=== PATIENT | female | born 1955 | race Caucasian/White ===

== ENCOUNTER 2019-12-12 12:36 | Emergency (ER) | payer OTHER, MEDICARE, SELFPAY ==
--- NOTE | ~2019-12-12 | CT_ITS ---
EXAMINATION: CT abdomen pelvis w con EXAM DATE: 12/12/2019 16:28 INDICATION: Right flank, abdominal pain. Nausea vomiting. History gastric bypass. TECHNIQUE: Spiral CT of the abdomen and pelvis was performed following intravenous injection of 100 m L Omnipaque 350. Axial, coronal and sagittal images were reviewed. The dose-length product (DLP) fo r this examination was 787.59 mGy-cm. The exposure was tailored according to patient size (auto mA e xposure control), and iterative reconstruction (ASIR) was used as additional dose reduction technique . Comparison is made to prior examination from 11/17/12. FINDINGS: The liver, spleen, adrenal glands and pancreas are unremarkable. There are cholecystectomy clips. Portal and splenic veins are patent. Kidneys enhance symmetrically. There is no hydronephr osis. The uterus is not identified and has likely been surgically resected. The bladder is unremar kable. There is no retroperitoneal or pelvic lymphadenopathy. There is mild scattered arterioscler otic disease. The appendix is not positively visualized, probably been resected. There is no pericecal inflammator y change to suggest appendicitis. There are surgical changes from intact gastric bypass surgery. Th ere is expected amount of colonic stool. No free intraperitoneal gas. The heart is normal in size . There are no pericardial or pleural effusions. The lung bases are unremarkable. There is a right ischial sclerotic focus measuring 1.0 cm, unchanged compared to prior study, bone island. Lower lumb ar surgical changes. IMPRESSION: 1. No acute intra-abdominal findings. Reviewed, dictated and finalized at location A. CRIPTIONIST
[2019-12-12 14:45] VITALS: BP 151/75; PULSE 88; RESP 18; TEMP 36.8; O2SAT 100
[2019-12-12 15:04] LABS: Basophils Absolute Auto 0.1 K/mm3 (0.0-0.1); Basophils Percent Auto 0.8 % (0.2-1.2); Eosinophils Absolute Auto 0.2 K/mm3 (0-0.3); Eosinophils Percent Auto 1.4 % (0-4.4); Hematocrit 36.1 % (37.0-47.0); Hemoglobin 11.4 g/dL (12.0-15.0); Immature Granulocyte Absolute 0.03 K/mm3 (0.00-0.031); Immature Granulocyte Percent A 0.3 % (0-0.5); Lymphocytes Absolute Auto 2.62 K/mm3 (0.9-3.2); Lymphocytes Percent Auto 25.3 % (18.3-44.2); Mean Corpuscular HGB Conc 31.6 g/dl (32-36); Mean Corpuscular Hemoglobin 25.3 pg (26-34); Mean Corpuscular Volume 80.2 fl (80-100); Mean Platelet Volume 8.7 fl (7.4-10.4); Monocytes Absolute Auto 0.5 K/mm3 (0.1-0.6); Monocytes Percent Auto 5.1 % (2.6-8.5); Neutrophils Percent Auto 67.1 % (45.5-73.1); Platelet Count Result 417 k/mm3 (150-375); Red Cell Distribution Width 17.5 % (11.5-14.5); White Blood Count 10.4 K/mm3 (4.5-10.0)
[2019-12-12 15:08] LABS: Alanine Aminotransferase 31 U/L (4-35); Albumin Level 4.3 g/dL (3.5-5.1); Alkaline Phosphatase 99 U/L (38-126); Aspartate Amino Transferase 39 U/L (14-36); Bilirubin,Total 0.4 mg/dL (0.2-1.3); Blood Urea Nitrogen 10 mg/dL (7-17); Calcium 9.1 mg/dL (8.4-10.2); Carbon Dioxide 29 mmol/L (22-30); Chloride 99 mmol/L (98-107); Estimated CRCL calculation 106 ml/min; Estimated Glomerular Filt Rate > 60; Glucose 91 mg/dL (65-105); Lipase 103 U/L (23-300); Potassium 4.1 mmol/L (3.4-5.0); Sodium 138 mmol/L (137-145)
[2019-12-12 15:10] LABS: Add Urine Microscopic? NO; Appearance Urine Clear (Clear); Bilirubin Urine Negative (Negative); Blood Urine Negative (Negative); Color Urine Colorless (Yellow); Glucose Urine UA Negative (Negative); Ketones Urine Negative (Negative); Leukocyte Esterase Ur Negative LEU/UL (Negative); Nitrate Urine Negative (Negative); Protein Urine Negative (Negative); Specific Grav Ur 1.005 (1.001-1.035); Urobilinogen Urine Negative mg/dL (<2.0)
--- NOTE | 2019-12-12 16:02 | ED.ABDPAIN ---
HPI - Abdominal Pain General Chief Complaint: Abdominal Pain Stated Complaint: side pain/weak Time Seen by Provider: 12/12/19 16:01 Source: patient Mode of arrival: ambulatory Limitations: no limitations History of Present Illness HPI narrative: Pt is a 64 y/o female who presents to the ED with c/o a dull, pressure, and aching pain to her rt flank that radiates to her mid rt ABD. Her pain started on Tuesday (3 days ago) and worsened this morning. She states that her pain is constant but the pain intensity changes. She notes that her pain feels similar to when she had appendicitis but in a different location. This morning she drank coffee and was feeling fine, after she drank some water her pain worsened and she decided to get it checked out. She has a H/O an ulcer when she was in her 20's. Pt has been eating saltines which eases some of her pain. Pt reports nausea and one episode of diarrhea, but she denies vomiting, dysuria, or hematuria. She has a PSHx of appendectomy, cholecystectomy, and gastric bypass. MD elicited complaint: abdominal pain and flank pain Onset (ago): day(s) (3) Pain Consistency: constant Location: R flank Quality: aching, dull and other (pressure) Radiation: other (rt mid quadrant) Exacerbating factors: other (drinking water) Relieving factors: eating (saltine) Associated symptoms: nausea and diarrhea Related Data Allergies Allergy/AdvReac Type Severity Reaction Status Date / Time tetracycline Allergy Intermediate HIVES Unverified 09/16/13 21:31 morphine Allergy Verified 09/16/13 21:31 Review of Systems Review of Systems: All systems reviewed & are unremarkable except as noted in HPI and below Gastrointestinal: Gastrointestinal: Reports abdominal pain, Reports diarrhea, Reports nausea and Denies vomiting Genitourinary: Genitourinary: Denies hematuria, Denies dysuria and Reports flank pain (rt) [facility] Past Medical History Medical History (Updated 12/12/19 @ 17:46 by Zulay Easton MD) Hypothyroid Ulcer Surgical History Surgical History (Updated 12/12/19 @ 16:30 by James Hankins) H/O section H/O: hysterectomy History of back surgery History of total right knee replacement Hx of appendectomy Hx of cholecystectomy Hx of gastric bypass Family History Family History (Updated 05/01/19 @ 15:19 by DOCTOR UNKNOWN) Mother Patient's mother is Family history of thyroid disease Diabetes mellitus Cerebrovascular accident Father Patient's father is Diabetes mellitus Cerebrovascular accident Grandparent Family history of thyroid disease Diabetes mellitus Family history of liver disease Cerebrovascular accident Sibling Family history of thyroid disease Other Family history of arthritis Family history of rheumatoid arthritis Social History Social History (Updated 12/12/19 @ 16:31 by James Hankins) Smoking packs per day: 0.5 Smoking cigarettes per day: 10.0 Smoking status: Current every day smoker Second hand tobacco smoke exposure: Yes Smoking end date: 10/10/11 Alcohol intake: current Comments Her PCP is Dr. Brooks. Exam Const: General: cooperative, no acute distress and alert Nutritional Appearance: well nourished Orientation/consciousness: patient oriented x3 Limitations: no limitations HENMT: Mouth: Yes lip normal and Yes moist mucous membranes Throat: uvula midline Resp: Effort & Inspection: normal respiratory effort Auscultation: clear to auscultation bilaterally Cardio: Rate: regular rate Rhythm: regular rhythm Peripheral pulses: dorsalis pedis present bilateral GI: GI Palp: Yes Soft to palpation and No Tenderness to palpation present (GI) Auscultation: normal bowel sounds Skin: General skin exam: normal color Rashes: no rashes Neuro: General: patient oriented x3 Cognition (Neuro): normal cognition Speech: normal speech Extrem: General: normal to inspection, full ROM and no clubbing, cyanosis or e
[2019-12-12 16:08] VITALS: BP 152/87; PULSE 95; RESP 20; O2SAT 97
[2019-12-12 18:00] VITALS: BP 117/68; PULSE 64; RESP 16; O2SAT 99
== END 2019-12-12 18:00 | disposition home or self-care (01) ==
PROVIDERS: Emergency Medicine; Emergency Provider Emergency Medicine; PCP Family Medicine
DX: R10.11 Right upper quadrant pain (principal); F17.210 Nicotine dependence, cigarettes, uncomplicated; E03.9 Hypothyroidism, unspecified
CPT/HCPCS: 36415; 74177; 80053; 81003; 83690; 85025; 99284; Q9967

== ENCOUNTER 2020-03-19 09:09 | Outpatient (CLI) | payer OTHER, MEDICARE, SELFPAY ==
--- NOTE | ~2020-03-19 | XR_ITS ---
EXAMINATION: XR lumbar spine 2-3V DATE: 03/19/2020 09:37 INDICATION: Low back pain. TECHNIQUE: 3 views of lumbar spine were obtained. COMPARISON: CT abdomen and pelvis 12/12/2019, lumbar spine MRI 04/18/2017 FINDINGS: There is 8 mm anterolisthesis of L5 on S1. There are changes of anterior and posterior fusi on procedures from L4 to S1 with interbody bone graft, left-sided pedicle screws, and S1 screw. Verte bral body heights are normal. There is moderately decreased disc height at L3-L4 with endplate remode ling. There is mild facet joint osteoarthritis at L3-L4 and mild facet joint osteoarthritis of the mariah mbar spine. Surgical clips in the right upper quadrant are likely from cholecystectomy. IMPRESSION: 1. Moderate lumbar spondylosis. 2. Anterior and posterior fusion procedures from L4 to S1. Reviewed, dictated and finalized at location A.
[2020-03-19 10:11] LABS: Basophils Absolute Auto 0.1 K/mm3 (0.0-0.1); Basophils Percent Auto 0.9 % (0.2-1.2); Eosinophils Absolute Auto 0.2 K/mm3 (0-0.3); Eosinophils Percent Auto 2.6 % (0-4.4); Hematocrit 36.4 % (37.0-47.0); Hemoglobin 11.7 g/dL (12.0-15.0); Immature Granulocyte Absolute 0.03 K/mm3 (0.00-0.031); Immature Granulocyte Percent A 0.4 % (0-0.5); Lymphocytes Absolute Auto 2.48 K/mm3 (0.9-3.2); Lymphocytes Percent Auto 32.6 % (18.3-44.2); Mean Corpuscular HGB Conc 32.1 g/dl (32-36); Mean Corpuscular Hemoglobin 25.9 pg (26-34); Mean Corpuscular Volume 80.7 fl (80-100); Monocytes Absolute Auto 0.6 K/mm3 (0.1-0.6); Neutrophils Absolute Auto 4.2 K/mm3 (1.3-6.7); Neutrophils Percent Auto 55.5 % (45.5-73.1); Platelet Count Result 399 k/mm3 (150-375); Red Blood Count 4.51 M/mm3 (4.2-5.4); Red Cell Distribution Width 16.3 % (11.5-14.5); White Blood Count 7.6 K/mm3 (4.5-10.0)
[2020-03-19 10:24] LABS: Alanine Aminotransferase 28 U/L (4-35); Albumin Level 4.2 g/dL (3.5-5.1); Alkaline Phosphatase 98 U/L (38-126); Aspartate Amino Transferase 38 U/L (14-36); Bilirubin,Total 0.2 mg/dL (0.2-1.3); Blood Urea Nitrogen 11 mg/dL (7-17); Calcium 9.2 mg/dL (8.4-10.2); Carbon Dioxide 31 mmol/L (22-30); Chloride 99 mmol/L (98-107); Cholesterol 227 mg/dL (0-200); Estimated Glomerular Filt Rate > 60; Glucose 91 mg/dL (65-105); HDL Direct 60 mg/dL; Sodium 134 mmol/L (137-145); Triglycerides 97 mg/dL (<150)
[2020-03-19 10:36] LABS: LDL Cholesterol Direct 144 mg/dL
[2020-03-19 10:56] LABS: Thyroid Stimulating Hormone 0.951 uIU/mL (0.465-4.680)
[2020-03-19 11:17] LABS: Iron 45 ug/dL (37-170); Percent Iron Saturation 10 % (20-50)
[2020-03-19 11:18] LABS: Free T4 Free Thyroxine 0.97 ng/mL (0.78-2.19); Vitamin D 25 Hydroxy 31.5 ng/mL
[2020-03-19 11:43] LABS: Folic Acid > 20.0 ng/mL (2.76->20)
[2020-03-24 07:26] LABS: Triiodothyronine T3 Free 3.1 pg/mL (2.3-4.2)
== END 2020-03-19 09:10 | disposition home or self-care (01) ==
LOC: ANHLAB 09:17
PROVIDERS: PCP Family Medicine; Visit Provider Family Medicine
DX: E05.90 Thyrotoxicosis, unspecified without thyrotoxic crisis or storm (principal); E03.9 Hypothyroidism, unspecified; Z98.84 Bariatric surgery status; Z13.1 Encounter for screening for diabetes mellitus; Z13.220 Encounter for screening for lipoid disorders; Z13.21 Encounter for screening for nutritional disorder; M54.9 Dorsalgia, unspecified
CPT/HCPCS: 36415; 72100; 80053; 80061; 82306; 82607; 82746; 83540; 83550; 84439; 84443; 84481; 85025

== ENCOUNTER 2020-04-28 10:23 | Outpatient (CLI) | payer OTHER, MEDICARE, SELFPAY ==
--- NOTE | ~2020-04-28 | CT_ITS ---
EXAMINATION: CT lumbar spine wo con EXAM DATE: 04/28/2020 10:49 INDICATION: Low back pain, history of surgery 10 years ago. TECHNIQUE: Spiral CT of the lumbar spine was performed without contrast. Axial, coronal and sagittal images were reviewed. The dose-length product (DLP) for this examination was 939.03 mGy-cm. The e xposure was tailored according to patient size (auto mA exposure control), and iterative reconstructi on (ASIR) was used as additional dose reduction technique. There is no prior study for comparison. C orrelation was made with lumbar spine MRI exam 04/18/2017. FINDINGS: There are left-sided pedicular screws and interbody fusion L4-S1. The L5-S1 level is fused in anterolisthesis position, evidence of old chronic bilateral L5 spondylolysis. Upper lumbar vertebr al bodies are aligned. There is mild to moderate disc disease at L3-4 with vacuum disc phenomenon. Pa raspinal soft tissue is unremarkable. Level by level evaluation: T12-L1: There is a mild diffuse disc bulge. Facet arthropathy: Minimal. Neural foraminal stenosis: No stenosis. Central canal stenosis: No stenosis. L1-L2: There is a mild diffuse disc bulge. Facet arthropathy: Mild. Neural foraminal stenosis: No stenosis. Central canal stenosis: No stenosis. L2-L3: There is a mild diffuse disc bulge. Facet arthropathy: Mild to moderate. Neural foraminal stenosis: Minimal left. Central canal stenosis: Mild. L3-L4: There is a mild to moderate diffuse disc bulge. Facet arthropathy: Moderate. Neural foraminal stenosis: Mild to moderate bilateral. Central canal stenosis: Mild to moderate. L4-L5: This level is fused. Facet arthropathy: Mild to moderate. Neural foraminal stenosis: Mild right. Central canal stenosis: No stenosis. L5-S1: This level is fused. Facet arthropathy: Mild to moderate. Neural foraminal stenosis: Mild to moderate bilateral. Central canal stenosis: No stenosis. IMPRESSION: 1. Intact L4-S1 fusion. 2. Mild to moderate spondylosis as detailed above. Reviewed, dictated and finalized at location A.
== END 2020-04-28 10:24 | disposition home or self-care (01) ==
PROVIDERS: PCP Family Medicine; Visit Provider Family Medicine
DX: M47.896 Other spondylosis, lumbar region (principal); Z98.1 Arthrodesis status
CPT/HCPCS: 72131

== ENCOUNTER 2020-05-14 10:12 | Outpatient (CLI) | payer OTHER, MEDICARE, SELFPAY ==
[2020-05-14 10:55] LABS: Basophils Absolute Auto 0.1 K/mm3 (0.0-0.1); Basophils Percent Auto 1.2 % (0.2-1.2); Eosinophils Absolute Auto 0.2 K/mm3 (0-0.3); Eosinophils Percent Auto 2.9 % (0-4.4); Hematocrit 36.8 % (37.0-47.0); Hemoglobin 11.8 g/dL (12.0-15.0); Immature Granulocyte Absolute 0.02 K/mm3 (0.00-0.031); Immature Granulocyte Percent A 0.3 % (0-0.5); Lymphocytes Absolute Auto 2.09 K/mm3 (0.9-3.2); Lymphocytes Percent Auto 30.1 % (18.3-44.2); Mean Corpuscular HGB Conc 32.1 g/dl (32-36); Mean Corpuscular Hemoglobin 26.2 pg (26-34); Mean Corpuscular Volume 81.6 fl (80-100); Mean Platelet Volume 8.6 fl (7.4-10.4); Monocytes Absolute Auto 0.6 K/mm3 (0.1-0.6); Monocytes Percent Auto 8.5 % (2.6-8.5); Platelet Count Result 392 k/mm3 (150-375); Red Blood Count 4.51 M/mm3 (4.2-5.4); Red Cell Distribution Width 17.2 % (11.5-14.5); White Blood Count 6.9 K/mm3 (4.5-10.0)
[2020-05-14 11:20] LABS: Alanine Aminotransferase 35 U/L (4-35); Albumin Level 4.1 g/dL (3.5-5.1); Alkaline Phosphatase 86 U/L (38-126); Anion Gap 9.2 mmol/L (7-16); Aspartate Amino Transferase 38 U/L (14-36); Bilirubin,Total 0.4 mg/dL (0.2-1.3); Blood Urea Nitrogen 13 mg/dL (7-17); Calcium 9.1 mg/dL (8.4-10.2); Carbon Dioxide 30 mmol/L (22-30); Chloride 101 mmol/L (98-107); Estimated Glomerular Filt Rate > 60; Glucose 88 mg/dL (65-105); Potassium 4.2 mmol/L (3.4-5.0); Sodium 136 mmol/L (137-145)
[2020-05-14 12:13] LABS: Hepatitis B Surface Antigen Negative (Negative)
[2020-05-14 12:17] LABS: HAV RESULT Negative (Negative); Hepatitis B Core IgM Result Negative (Negative)
[2020-05-14 12:34] LABS: Hepatitis C Virus Antibody Negative (Negative)
== END 2020-05-14 10:13 | disposition home or self-care (01) ==
PROVIDERS: PCP Family Medicine; Visit Provider Family Medicine
DX: D64.9 Anemia, unspecified (principal); R79.89 Other specified abnormal findings of blood chemistry; R94.5 Abnormal results of liver function studies
CPT/HCPCS: 36415; 80053; 80074; 85025

== ENCOUNTER 2020-06-16 20:25 | Emergency (ER) | payer OTHER, MEDICARE, SELFPAY ==
--- NOTE | ~2020-06-16 | XR_ITS ---
XR chest 2V DATE: 06/16/2020 21:06 INDICATION: Chest tightness on the left. Hypertension. TECHNIQUE: AP and lateral views COMPARISON: 01/17/2009 PA and lateral chest FINDINGS: Surgical clips, right upper quadrant, consistent with cholecystectomy. Normal heart size. There is mild aortic tortuosity. No hilar or mediastinal enlargement. No pulmonary infiltrate or consolidation, pleural effusion or pulmonary vascular congestion or pneumothorax. IMPRESSION: No active cardiopulmonary disease Reviewed, dictated and finalized at location A.
--- NOTE | ~2020-06-16 | CT_ITS ---
EXAMINATION: CT brain wo con DATE: 06/16/2020 21:08 INDICATION: Dizziness, right-sided numbness, poor coordination. TECHNIQUE: Computed tomography (CT) of the head was performed without intravenous contrast. The mA wa s adjusted according to patient size. Iterative reconstruction technique was employed. Exam dose: 60 5.33 mGy-cm total exam DLP. COMPARISON: None FINDINGS: No intracranial mass lesion or hemorrhage or cerebrovascular accident. No midline shifts or mass effects. Normal ventricular size. No subdural or epidural hematoma. No fracture or bone destruction of the cranial vault. The mastoid air cells and paranasal sinuses are normally developed and aerated. IMPRESSION: No significant abnormality Reviewed, dictated and finalized at Location A. Reviewed, dictated and finalized at location A. IMPRESSION: No significant abnormality
[2020-06-16 20:30] VITALS: BP 159/107; PULSE 122; RESP 18; TEMP 36.6; O2SAT 99
[2020-06-16 20:35] VITALS: O2SAT 97
--- NOTE | 2020-06-16 20:35 | ECG_ITS ---
Measurements Intervals [place] Rate: 127 P: 52 [place]: 141 QRS: -12 QRSD: 90 T: 74 QT: 312 QTc: 455 Interpretive Statements SINUS TACHYCARDIA NONSPECIFIC ST & T-WAVE ABNORMALITY- HIGH LATERAL LEADS BASELINE ARTIFACT- II, III, V3-V4 ABNORMAL ECG Electronically Signed On 06-17-2020 6:53:54 CDT by Abdulaziz Stevens D.O.
--- NOTE | 2020-06-16 20:58 | ED.GENADULT ---
HPI - General Adult General Chief complaint: Chest Pain Stated complaint: CP with dizziness Time Seen by Provider: 06/16/20 20:32 History of Present Illness HPI narrative: Patient is a 65-year-old female who presents the ER with several complaints. She reports she arrived home from going on a walk with her dogs at approximately 1950. While she was standing in her kitchen she suddenly began to have ringing/roaring in her ears bilaterally. She then began to feel very dizzy. After the dizziness and tinnitus began she felt some shortness of breath and chest pain began breathing fast. She reports some brief shaking along with this. In route with EMS patient continues to have the dizziness and the ringing in her ears. Patient reports she also notes that she has new numbness to her right face, right arm, and right leg. She has some chronic nerve issues in her right lower extremities but her sensation seems to be worse there. She also feels like her coordination in her right lower extremity is abnormal from baseline. No previous stroke history. No history of A. fib. She is not on any blood thinners. No aggravating or alleviating factors. Related Data Home Medications Medication Instructions Recorded Confirmed thyroid (pork) [[place] Thyroid] 06/16/20 Allergies Allergy/AdvReac Type Severity Reaction Status Date / Time morphine Allergy Severe Itching Verified 06/16/20 20:35 tetracycline Allergy Intermediate HIVES Verified 06/16/20 20:35 Review of Systems Review of Systems: All systems reviewed & are unremarkable except as noted in HPI and below Eyes: Eyes: Denies change in vision and Denies photophobia ENT: Comments: +tinnitus Cardiovascular: Cardiovascular: Reports chest pain and Denies radiating jaw, neck or arm pain Respiratory: Respiratory: Denies cough, Reports dyspnea and Denies wheezing Musculoskeletal: Musculoskeletal: Denies arthralgias, Denies joint swelling and Denies muscle cramps Neurologic: Reports dizziness, Denies headache(s), Denies focal weakness and Reports numbness Comments: +incoordination PMFSH Social History Social History Smoking packs per day: 0.5 Smoking cigarettes per day: 10.0 Smoking status: Current every day smoker Second hand tobacco smoke exposure: Yes Smoking end date: 10/10/11 Alcohol intake: current Exam Narrative: Exam Narrative: GENERAL: Well-appearing, well-nourished, and in no acute distress. HEAD: Normocephalic, atraumatic. ENT: Mucous membranes moist. TM's normal bilaterally, small amount of cerumen in left ear canal. CHEST: Clear to auscultation. No respiratory distress. HEART: Tachycardic and regular. Normal peripheral pulses. ABDOMEN: Soft, nontender, nondistended. EXTREMITIES: Normal range of motion. No edema. SKIN: Warm, dry, no rash. NEURO: Decreased sharp touch sensation to the right face, the right upper extremity, and the right lower extremity when compared to the left. Patient has no upper extremity drift or lower extremity drift but patient does have some difficulty initially lifting her leg off the bed on the right side. Patient has difficulty with [id number] testing with the right lower extremity and normal [id number] testing with the left lower extremity. Finger-nose testing intact in bilateral upper extremities. Patient is without facial motor weakness, no dysarthria, no expressive aphasia. Alert and oriented x3. PSYCH: Normal mood and affect. Course Course Emergency Course: Discussed with Dr. London at [facility]. Does not recommend TPA with low stroke scale and mainly sensory deficits. Has accepted the patient for transfer to [facility] for further evaluation and treatment. Vital Signs Vital signs: Vital Signs Temperature 97.8 F 06/16/20 20:30 Pulse Rate 122 H 06/16/20 20:30 Respiratory Rate 18 06/16/20 20:30 Blood Pressure 159/107 H 06/16/20 20:30 Pulse Oximetry 99
[2020-06-16 21:26] VITALS: BP 165/95; PULSE 100; RESP 20; O2SAT 100
[2020-06-16 21:31] LABS: Basophils Absolute Auto 0.1 K/mm3 (0.0-0.1); Basophils Percent Auto 1.2 % (0.2-1.2); Eosinophils Absolute Auto 0.2 K/mm3 (0-0.3); Eosinophils Percent Auto 2.8 % (0-4.4); Hematocrit 35.5 % (37.0-47.0); Hemoglobin 11.4 g/dL (12.0-15.0); Immature Granulocyte Absolute 0.02 K/mm3 (0.00-0.031); Immature Granulocyte Percent A 0.3 % (0-0.5); Lymphocytes Absolute Auto 2.65 K/mm3 (0.9-3.2); Lymphocytes Percent Auto 34.7 % (18.3-44.2); Mean Corpuscular HGB Conc 32.1 g/dl (32-36); Mean Corpuscular Hemoglobin 26.3 pg (26-34); Mean Corpuscular Volume 81.8 fl (80-100); Mean Platelet Volume 8.6 fl (7.4-10.4); Monocytes Absolute Auto 0.6 K/mm3 (0.1-0.6); Monocytes Percent Auto 7.9 % (2.6-8.5); Neutrophils Absolute Auto 4.1 K/mm3 (1.3-6.7); Neutrophils Percent Auto 53.1 % (45.5-73.1); Platelet Count Result 369 k/mm3 (150-375); Red Blood Count 4.34 M/mm3 (4.2-5.4); Red Cell Distribution Width 17.2 % (11.5-14.5); White Blood Count 7.6 K/mm3 (4.5-10.0)
[2020-06-16 21:41] LABS: INR 0.9; Partial Thromboplastin Time 28.8 SECONDS (22.3-36.8); Prothrombin Time 12.1 Seconds (11.1-14.7)
[2020-06-16 21:45] LABS: Anion Gap 5 mmol/L (8-16); Blood Urea Nitrogen 15 mg/dL (7-17); Carbon Dioxide 28 mmol/L (22-30); Chloride 104 mmol/L (98-107); Estimated CRCL calculation 69 ml/min; Estimated Glomerular Filt Rate > 60; Glucose 103 mg/dL (65-105); Potassium 4.2 mmol/L (3.4-5.0); Sodium 137 mmol/L (137-145)
[2020-06-16 21:51] VITALS: BP 169/91; PULSE 96; RESP 18; O2SAT 100
--- NOTE | 2020-06-16 21:51 | PC.NURSE ---
pt received 324mg aspirin by ems prior to ed arrival.
[2020-06-16 21:56] LABS: Troponin I < 0.012 ng/mL (0.000-0.034)
[2020-06-16 22:16] VITALS: BP 157/83; PULSE 92; RESP 18; O2SAT 99
--- NOTE | 2020-06-16 22:34 | PC.NURSE ---
Addendum entered by Chery Yoder 06/16/20 22:39: [facility] both were called for transportation and both declined Original Note: contacted [facility] to transfer patient to [facility] 0000
--- NOTE | 2020-06-16 23:42 | PC.NURSE ---
jean-baptiste called and informed us that a new eta has been given for 004
[2020-06-17 00:01] VITALS: BP 129/66; PULSE 96; RESP 20; O2SAT 97
[2020-06-17 00:24] LABS: Troponin I < 0.012 ng/mL (0.000-0.034)
--- NOTE | 2020-06-17 00:32 | PC.NURSE ---
jean-baptiste has arrived
[2020-06-17 00:36] VITALS: BP 127/80; PULSE 90; RESP 18; TEMP 36.6; O2SAT 97
== END 2020-06-17 01:01 | disposition short-term general hospital (02) ==
PROVIDERS: Emergency Provider Emergency Medicine; PCP Family Medicine
DX: I63.9 Cerebral infarction, unspecified (principal); R29.702 NIHSS score 2; R07.9 Chest pain, unspecified; R00.0 Tachycardia, unspecified; F17.210 Nicotine dependence, cigarettes, uncomplicated
CPT/HCPCS: 36415; 70450; 71046; 80048; 82948; 84484; 85025; 85610; 85730; 93005; 99285

== ENCOUNTER 2021-03-02 11:06 | Emergency (ER) | payer OTHER, MEDICARE, SELFPAY ==
--- NOTE | ~2021-03-02 | XR_ITS ---
EXAMINATION: XR tibia fibula RT 2V INDICATION: Right leg pain TECHNIQUE: Two views of the right tibia and fibula are obtained. COMPARISON: None available FINDINGS: There is lateral soft tissue swelling adjacent to the mid fibula. No underlying osseous abn ormality is identified. There are no radiopaque foreign bodies. Bone alignment is normal. There are c hanges of total knee arthroplasty. IMPRESSION: 1. Soft tissue swelling of the lateral leg without acute osseous abnormality or radiopaque foreign carlos eduardo dy. Reviewed, dictated and finalized at location A. IMPRESSION: 1. Soft tissue swelling of the lateral leg without acute osseous abnormality or radiopaque foreign body.
[2021-03-02 11:09] VITALS: BP 138/90; PULSE 94; RESP 14; TEMP 36.6; O2SAT 100
[2021-03-02 11:16] VITALS: BP 143/75; PULSE 85; RESP 16; O2SAT 100
--- NOTE | 2021-03-02 12:03 | ED.LOWEXIN ---
HPI - Extremity Injury (Lower) General Chief Complaint: Extremity Injury, Lower Stated Complaint: right leg injury Time Seen by Provider: 03/02/21 11:33 Source: patient Mode of arrival: ambulatory Limitations: no limitations History of Present Illness HPI Narrative: Patient is a 65 year old female who presents with swelling and tenderness to right lateral leg. She reports that a piece of plywood fell on side of leg approximately 3 days ago. She reports intial abrasion and hematoma, reports increased redness and edema. She is not on anticoagulants. She reports increased swelling and bruising to foot. She reports pain with ambulation. She denies other complaints and is unsure when she had last tetanus vaccine. MD complaint: leg injury Related Data Home Medications Medication Instructions Recorded Confirmed aspirin 325 mg tablet 325 mg PO DAILY 06/30/20 12/02/20 atorvastatin 40 mg tablet 40 mg PO DAILY 06/30/20 12/02/20 hydrochlorothiazide 12.5 mg tablet 12.5 mg PO DAILY PRN 12/02/20 12/02/20 Allergies Allergy/AdvReac Type Severity Reaction Status Date / Time morphine Allergy Severe Itching Verified 12/02/20 10:37 tetracycline Allergy Intermediate HIVES Verified 12/02/20 10:37 hydrocodone Allergy Itching Verified 03/02/21 11:24 oxycodone Allergy Irritable Verified 03/02/21 11:24 Review of Systems Review of Systems: Narrative: CONSTITUTIONAL: Denies fever, chills, or sweats. EYES: Denies visual changes, redness, or discharge. ENT: Denies rhinorrhea, congestion, sore throat, or otalgia. CARDIOVASCULAR: Denies chest pain, palpitations, or edema. RESPIRATORY: Denies cough or dyspnea. GASTROINTESTINAL: Denies abdominal pain, nausea, vomiting, or diarrhea. GENITOURINARY: Denies dysuria or hematuria. SKIN: Denies rash or itching. MUSCULOSKELETAL: Right leg pain, swelling, abrasion NEUROLOGIC: Denies headache, numbness, dizziness, or weakness. PSYCHIATRIC: Denies anxiety or depression. [facility] Past Medical History Medical History (Updated 03/02/21 @ 13:29 by MYRA Serrano) Hypothyroid Ulcer Surgical History Surgical History H/O section H/O: hysterectomy History of back surgery History of total right knee replacement Hx of appendectomy Hx of cholecystectomy Hx of gastric bypass Family History Family History Mother Patient's mother is Family history of thyroid disease Diabetes mellitus Cerebrovascular accident Father Patient's father is Diabetes mellitus Cerebrovascular accident Grandparent Family history of thyroid disease Diabetes mellitus Family history of liver disease Cerebrovascular accident Sibling Family history of thyroid disease Other Family history of arthritis Family history of rheumatoid arthritis Social History Social History Smoking packs per day: 0.5 Smoking cigarettes per day: 10.0 Smoking status: Current every day smoker Second hand tobacco smoke exposure: Yes Smoking end date: 10/10/11 Alcohol intake: current Drinks per week: 1 Substance use: never Substance use type: does not use Gender identity (if verbalized by the patient): Female Spiritual care concerns: No Agree to blood products: Yes Comments At the time of signature, I have reviewed and agree with nursing past medical, surgical, social, and family history unless otherwise noted. Please see nursing chart for further information. There is no relevant family history pertinent to the presenting complaint. Exam Narrative: Exam Narrative: GENERAL: Well-appearing, well-nourished, and in no acute distress. HEAD: Normocephalic, atraumatic. EYES: EOMI. No redness or drainage. Conjunctiva are normal. ENT: Mucous membranes pink and moist. HEART: Regular rate and rhythm. No murmur appreciated. Analy
[2021-03-02] MEDS: TETANUS,DIPHTHERIA,AC PERTUSSIS ADULT (0.5 ML) BOOSTRIX IM (13:27)
== END 2021-03-02 13:41 | disposition home or self-care (01) ==
PROVIDERS: Emergency Provider Nurse Practitioner; PCP Family Medicine
DX: L03.115 Cellulitis of right lower limb (principal); S90.31XA Contusion of right foot, initial encounter; S90.01XA Contusion of right ankle, initial encounter; S80.811A Abrasion, right lower leg, initial encounter; Z23 Encounter for immunization; E03.9 Hypothyroidism, unspecified; Z96.651 Presence of right artificial knee joint; Z98.84 Bariatric surgery status; F17.210 Nicotine dependence, cigarettes, uncomplicated; W20.8XXA Other cause of strike by thrown, projected or falling object, initial encounter
CPT/HCPCS: 73590; 90471; 90715; 99283

== ENCOUNTER 2021-04-28 13:34 | Outpatient (CLI) | payer OTHER, MEDICARE, SELFPAY ==
--- NOTE | ~2021-04-28 | US_ITS ---
EXAMINATION: US venous doppler LE RT DATE: 04/28/2021 13:11 INDICATION: Right lower limb pain TECHNIQUE: Guzman scale images without and with compression and Doppler images of the right lower extre mity veins were obtained. COMPARISON: None FINDINGS: The right common femoral vein, profunda femoral vein, femoral vein, popliteal vein, peronea l trunk, posterior tibial veins, and greater saphenous vein are patent. There is an approximately 3.8 x 6.3 x 1.0 cm complex, mixed echogenicity area in the subcutaneous tissues of the right lateral mauricio f in the area of clinical concern without internal vascularity. IMPRESSION: 1. Patent right lower extremity veins. No evidence of deep venous thrombosis. 2. Likely soft tissue hematoma of the right calf at the area of clinical concern. Reviewed, dictated and finalized at location B. IMPRESSION: 1. Patent right lower extremity veins. No evidence of deep venous thrombosis. 2. Likely soft tissue hematoma of the right calf at the area of clinical concer n.
[2021-04-28 13:53] LABS: Basophils Absolute Auto 0.1 K/mm3 (0.0-0.1); Basophils Percent Auto 0.7 % (0.2-1.2); Eosinophils Absolute Auto 0.2 K/mm3 (0-0.3); Eosinophils Percent Auto 1.9 % (0-4.4); Hematocrit 33.4 % (37.0-47.0); Immature Granulocyte Absolute 0.03 K/mm3 (0.00-0.031); Immature Granulocyte Percent A 0.3 % (0-0.5); Lymphocytes Absolute Auto 2.52 K/mm3 (0.9-3.2); Lymphocytes Percent Auto 26.5 % (18.3-44.2); Mean Corpuscular HGB Conc 29.9 g/dl (32-36); Mean Corpuscular Hemoglobin 22.7 pg (26-34); Mean Corpuscular Volume 75.9 fl (80-100); Mean Platelet Volume 8.5 fl (7.4-10.4); Monocytes Absolute Auto 0.7 K/mm3 (0.1-0.6); Monocytes Percent Auto 7.6 % (2.6-8.5); Platelet Count Result 417 k/mm3 (150-375); Red Cell Distribution Width 18.9 % (11.5-14.5); White Blood Count 9.5 K/mm3 (4.5-10.0)
[2021-04-28 14:04] LABS: Alanine Aminotransferase 25 U/L (4-35); Albumin Level 4.3 g/dL (3.5-5.1); Alkaline Phosphatase 107 U/L (38-126); Anion Gap 7 mmol/L (8-16); Aspartate Amino Transferase 39 U/L (14-36); Bilirubin,Total 0.3 mg/dL (0.2-1.3); Blood Urea Nitrogen 16 mg/dL (7-17); Calcium 9.7 mg/dL (8.4-10.2); Carbon Dioxide 31 mmol/L (22-30); Chloride 98 mmol/L (98-107); Estimated Glomerular Filt Rate > 60; Glucose 90 mg/dL (65-110); Magnesium 2.2 mg/dL (1.6-2.3); Potassium 4.5 mmol/L (3.4-5.0); Sodium 136 mmol/L (137-145)
[2021-04-28 14:21] LABS: Platelet Estimate Adequate (Adequate)
[2021-04-28 14:23] LABS: Anisocytosis 2+ (NORMAL); Ovalocytes 2+ (NORMAL); Tear Drop Cells 1+ (NORMAL)
[2021-04-28 15:40] LABS: Iron 20 ug/dL (37-170)
[2021-04-28 15:49] LABS: Percent Iron Saturation 4 % (20-50)
[2021-04-28 15:57] LABS: Vitamin D 25 Hydroxy 40.8 ng/mL
[2021-04-29 17:53] LABS: Folic Acid 18.5 ng/mL (2.76->20)
== END 2021-04-28 13:35 | disposition home or self-care (01) ==
PROVIDERS: PCP Family Medicine; Visit Provider Family Medicine
DX: M25.473 Effusion, unspecified ankle (principal); M79.669 Pain in unspecified lower leg; R25.2 Cramp and spasm; E04.1 Nontoxic single thyroid nodule; D64.9 Anemia, unspecified; E55.9 Vitamin D deficiency, unspecified
CPT/HCPCS: 36415; 80053; 82306; 82607; 82746; 83540; 83550; 83735; 84443; 85025; 93971

== ENCOUNTER 2021-06-05 10:59 | Outpatient (CLI) | payer OTHER, MEDICARE, SELFPAY ==
[2021-06-05 11:48] LABS: Basophils Absolute Auto 0.1 K/mm3 (0.0-0.1); Basophils Percent Auto 1.2 % (0.2-1.2); Eosinophils Absolute Auto 0.2 K/mm3 (0-0.3); Hematocrit 41.1 % (37.0-47.0); Hemoglobin 12.8 g/dL (12.0-15.0); Immature Granulocyte Absolute 0.03 K/mm3 (0.00-0.031); Immature Granulocyte Percent A 0.4 % (0-0.5); Lymphocytes Absolute Auto 2.05 K/mm3 (0.9-3.2); Lymphocytes Percent Auto 28.2 % (18.3-44.2); Mean Corpuscular HGB Conc 31.1 g/dl (32-36); Mean Corpuscular Hemoglobin 26.3 pg (26-34); Mean Corpuscular Volume 84.6 fl (80-100); Mean Platelet Volume 8.9 fl (7.4-10.4); Monocytes Absolute Auto 0.6 K/mm3 (0.1-0.6); Neutrophils Absolute Auto 4.3 K/mm3 (1.3-6.7); Neutrophils Percent Auto 59.2 % (45.5-73.1); Platelet Count Result 347 k/mm3 (150-375); Red Blood Count 4.86 M/mm3 (4.2-5.4); White Blood Count 7.3 K/mm3 (4.5-10.0)
[2021-06-05 12:00] LABS: Alanine Aminotransferase 33 U/L (4-35); Albumin Level 4.3 g/dL (3.5-5.1); Alkaline Phosphatase 92 U/L (38-126); Anion Gap 7 mmol/L (8-16); Aspartate Amino Transferase 40 U/L (14-36); Bilirubin,Total 0.3 mg/dL (0.2-1.3); Blood Urea Nitrogen 15 mg/dL (7-17); Calcium 9.6 mg/dL (8.4-10.2); Carbon Dioxide 30 mmol/L (22-30); Chloride 101 mmol/L (98-107); Estimated Glomerular Filt Rate > 60; Glucose 88 mg/dL (65-110); Potassium 4.8 mmol/L (3.4-5.0); Sodium 138 mmol/L (137-145)
[2021-06-05 13:13] LABS: Iron 132 ug/dL (37-170)
[2021-06-05 13:22] LABS: Percent Iron Saturation 36 % (20-50)
== END 2021-06-05 11:00 | disposition home or self-care (01) ==
PROVIDERS: PCP Family Medicine; Visit Provider Family Medicine
DX: D64.9 Anemia, unspecified (principal); R94.5 Abnormal results of liver function studies
CPT/HCPCS: 36415; 80053; 83540; 83550; 85025

== ENCOUNTER 2021-07-11 00:46 | Emergency (ER) | payer OTHER, MEDICARE, SELFPAY ==
--- NOTE | 2021-07-11 00:51 | ECG_ITS ---
Measurements Intervals [place] Rate: 114 P: 60 NE: 163 QRS: -11 QRSD: 80 T: 86 QT: 396 QTc: 546 Interpretive Statements SINUS TACHYCARDIA DELAYED PRECORDIAL R/S TRANSITION BORDERLINE ST-T WAVE ABNORMALITY- HIGH LATERAL LEADS BASELINE ARTIFACT- I, III, AVL, V4 ABNORMAL ECG Electronically Signed On 07-11-2021 8:37:44 CDT by Abdulaziz Stevens D.O.
[2021-07-11 00:56] VITALS: BP 152/99; PULSE 110; RESP 20; TEMP 36.6; O2SAT 99
[2021-07-11 01:18] LABS: Basophils Absolute Auto 0.1 K/mm3 (0.0-0.1); Basophils Percent Auto 0.6 % (0.2-1.2); Eosinophils Absolute Auto 0.3 K/mm3 (0-0.3); Eosinophils Percent Auto 2.8 % (0-4.4); Hematocrit 37.9 % (37.0-47.0); Hemoglobin 12.6 g/dL (12.0-15.0); Immature Granulocyte Absolute 0.04 K/mm3 (0.00-0.031); Immature Granulocyte Percent A 0.4 % (0-0.5); Lymphocytes Absolute Auto 5.26 K/mm3 (0.9-3.2); Lymphocytes Percent Auto 47.3 % (18.3-44.2); Mean Corpuscular HGB Conc 33.2 g/dl (32-36); Mean Corpuscular Hemoglobin 28.1 pg (26-34); Mean Corpuscular Volume 84.6 fl (80-100); Mean Platelet Volume 8.5 fl (7.4-10.4); Monocytes Absolute Auto 0.8 K/mm3 (0.1-0.6); Monocytes Percent Auto 7.5 % (2.6-8.5); Neutrophils Absolute Auto 4.6 K/mm3 (1.3-6.7); Neutrophils Percent Auto 41.4 % (45.5-73.1); Platelet Count Result 356 k/mm3 (150-375); Red Blood Count 4.48 M/mm3 (4.2-5.4); Red Cell Distribution Width 21.2 % (11.5-14.5); White Blood Count 11.1 K/mm3 (4.5-10.0)
--- NOTE | 2021-07-11 01:25 | PC.NURSE ---
Pt's upset that pt has to wait and he cannot wait with her. Seen assisting pt into vehicle after stating I'm taking her somewhere else .
[2021-07-11 01:29] LABS: Anion Gap 10 mmol/L (8-16); Blood Urea Nitrogen 25 mg/dL (7-17); Calcium 9.3 mg/dL (8.4-10.2); Carbon Dioxide 28 mmol/L (22-30); Chloride 102 mmol/L (98-107); Estimated CRCL calculation 78 ml/min; Estimated Glomerular Filt Rate > 60; Glucose 120 mg/dL (65-110); Potassium 3.4 mmol/L (3.4-5.0); Sodium 140 mmol/L (137-145)
[2021-07-11 01:32] LABS: INR 0.8; Prothrombin Time 11.5 Seconds (11.1-14.7)
[2021-07-11 01:33] LABS: Partial Thromboplastin Time 26.4 SECONDS (22.3-36.8)
[2021-07-11 01:40] LABS: Troponin I < 0.012 ng/mL (0.000-0.034)
== END 2021-07-11 01:30 | disposition left against medical advice (07) ==
LOC: ANHED 01:53
PROVIDERS: Emergency Provider Emergency Medicine; PCP Family Medicine
DX: R07.9 Chest pain, unspecified (principal)
CPT/HCPCS: 36415; 80048; 84484; 85025; 85610; 85730; 93005; 99199

== ENCOUNTER 2022-06-04 09:56 | Outpatient (CLI) | payer OTHER, MEDICARE, SELFPAY ==
[2022-06-04 10:43] LABS: Hematocrit 43.9 % (37.0-47.0); Hemoglobin 14.4 g/dL (12.0-15.0); Mean Corpuscular HGB Conc 32.8 g/dl (32-36); Mean Corpuscular Hemoglobin 31.1 pg (26-34); Mean Corpuscular Volume 94.8 fl (80-100); Mean Platelet Volume 8.7 fl (7.4-10.4); Platelet Count Result 330 k/mm3 (150-375); Red Blood Count 4.63 M/mm3 (4.2-5.4); Red Cell Distribution Width 14.3 % (11.5-14.5); White Blood Count 8.3 K/mm3 (4.5-10.0)
[2022-06-04 11:01] LABS: Alanine Aminotransferase 26 U/L (6-35); Albumin Level 4.1 g/dL (3.5-5.1); Alkaline Phosphatase 95 U/L (38-126); Anion Gap 7 mmol/L (8-16); Aspartate Amino Transferase 35 U/L (14-36); Bilirubin,Total 0.4 mg/dL (0.2-1.3); Blood Urea Nitrogen 22 mg/dL (7-17); Calcium 9.4 mg/dL (8.4-10.2); Carbon Dioxide 27 mmol/L (22-30); Chloride 101 mmol/L (98-107); Cholesterol 210 mg/dL (0-200); Estimated Glomerular Filt Rate > 60; Glucose 95 mg/dL (65-110); HDL Direct 61 mg/dL; Potassium 3.9 mmol/L (3.4-5.0); Sodium 135 mmol/L (137-145); Triglycerides 124 mg/dL (<150)
[2022-06-04 11:14] LABS: LDL Cholesterol Direct 102 mg/dL
[2022-06-04 11:18] LABS: Vitamin D 25 Hydroxy 45.7 ng/mL
[2022-06-04 11:32] LABS: Thyroid Stimulating Hormone Reflex 0.569 uIU/mL (0.465-4.68)
[2022-06-04 11:37] LABS: Hemoglobin A1C 5.3 % (<5.7)
[2022-06-04 11:45] LABS: Iron 109 ug/dL (37-170)
[2022-06-04 12:25] LABS: Folic Acid > 20.0 ng/mL (2.76->20); Vitamin B12 > 1000.0 pg/mL (239-931)
== END 2022-06-04 09:57 | disposition home or self-care (01) ==
PROVIDERS: PCP Family Medicine; Visit Provider Family Medicine
DX: R73.9 Hyperglycemia, unspecified (principal); D64.9 Anemia, unspecified; I10 Essential (primary) hypertension; E03.9 Hypothyroidism, unspecified; E55.9 Vitamin D deficiency, unspecified
CPT/HCPCS: 36415; 80053; 80061; 82306; 82607; 82746; 83036; 83540; 84443; 85027

== ENCOUNTER 2022-12-30 10:04 | Outpatient (CLI) | payer OTHER, MEDICARE, SELFPAY ==
[2022-12-30 10:27] LABS: Basophils Absolute Auto 0.1 K/mm3 (0.0-0.1); Basophils Percent Auto 1.2 % (0.2-1.2); Eosinophils Absolute Auto 0.4 K/mm3 (0-0.3); Eosinophils Percent Auto 4.8 % (0-4.4); Hematocrit 44.7 % (37.0-47.0); Hemoglobin 14.7 g/dL (12.0-15.0); Immature Granulocyte Absolute 0.01 K/mm3 (0.00-0.031); Immature Granulocyte Percent A 0.1 % (0-0.5); Lymphocytes Absolute Auto 2.52 K/mm3 (0.9-3.2); Lymphocytes Percent Auto 32.8 % (18.3-44.2); Mean Corpuscular HGB Conc 32.9 g/dl (32-36); Mean Corpuscular Hemoglobin 30.9 pg (26-34); Mean Corpuscular Volume 94.1 fl (80-100); Mean Platelet Volume 8.2 fl (7.4-10.4); Monocytes Absolute Auto 0.6 K/mm3 (0.1-0.6); Monocytes Percent Auto 7.9 % (2.6-8.5); Neutrophils Absolute Auto 4.1 K/mm3 (1.3-6.7); Neutrophils Percent Auto 53.2 % (45.5-73.1); Platelet Count Result 335 k/mm3 (150-375); Red Blood Count 4.75 M/mm3 (4.2-5.4); Red Cell Distribution Width 14.1 % (11.5-14.5); White Blood Count 7.7 K/mm3 (4.5-10.0)
[2022-12-30 11:10] LABS: Iron 86 ug/dL (37-170)
[2022-12-30 11:11] LABS: Vitamin D 25 Hydroxy 58.4 ng/mL
[2022-12-30 11:19] LABS: Percent Iron Saturation 25 % (20-50)
[2022-12-30 11:49] LABS: Alanine Aminotransferase 35 U/L (6-35); Albumin Level 4.3 g/dL (3.5-5.1); Alkaline Phosphatase 106 U/L (38-126); Anion Gap 6 mmol/L (8-16); Aspartate Amino Transferase 41 U/L (14-36); Bilirubin,Total 0.5 mg/dL (0.2-1.3); Blood Urea Nitrogen 11 mg/dL (7-17); Calcium 9.1 mg/dL (8.4-10.2); Carbon Dioxide 30 mmol/L (22-30); Chloride 100 mmol/L (98-107); Cholesterol 201 mg/dL (0-200); Estimated Glomerular Filt Rate > 60; Glucose 96 mg/dL (65-110); HDL Direct 51 mg/dL; Potassium 4.3 mmol/L (3.4-5.0); Sodium 136 mmol/L (137-145); Triglycerides 112 mg/dL (<150)
[2022-12-30 12:00] LABS: LDL Cholesterol Direct 100 mg/dL
[2022-12-30 12:25] LABS: Rheumatoid Factor < 8.6 IU/ML (<12)
[2022-12-30 13:18] LABS: Folic Acid > 20.0 ng/mL (2.76->20)
== END 2022-12-30 10:05 | disposition home or self-care (01) ==
PROVIDERS: PCP Family Medicine; Visit Provider Nurse Practitioner Family
DX: D64.9 Anemia, unspecified (principal); I10 Essential (primary) hypertension; E03.9 Hypothyroidism, unspecified; M54.50 Low back pain, unspecified; E55.9 Vitamin D deficiency, unspecified; E53.8 Deficiency of other specified B group vitamins; M25.50 Pain in unspecified joint; E78.2 Mixed hyperlipidemia; R73.01 Impaired fasting glucose
CPT/HCPCS: 36415; 80053; 80061; 82306; 82607; 82728; 82746; 83540; 83550; 84443; 85025; 86038; 86039; 86430

== ENCOUNTER 2023-02-28 12:36 | Outpatient (CLI) | payer OTHER, MEDICARE, SELFPAY ==
--- NOTE | ~2023-02-28 | XR_ITS ---
XR knee LT 3V 02/28/2023 13:10 Indication: Polyarthralgia Procedure: 3 views left knee Comparison: 01/05/2016 Findings: There is severe tricompartment osteoarthritis of the left knee. No fracture, subluxation or dislocation. No significant joint effusion. Impression: 1: Severe tricompartment osteoarthritis of the left knee. Reviewed, dictated and finalized at location B. Impression: 1: Severe tricompartment osteoarthritis of the left knee.
--- NOTE | ~2023-02-28 | XR_ITS ---
EXAMINATION: XR hand LT 2V DATE: 02/28/2023 13:10 INDICATION: Positive and a . Polyarthralgia. TECHNIQUE: 1. Posteroanterior and lateral views of the left hand were obtained. 2. Posteroanterior and lateral views of the right hand were obtained. COMPARISON: None. FINDINGS: Bone alignment is normal at both hands. No fractures. Polyarticular osteoarthritis, severe at the lef t first carpometacarpal joint and moderate severity at the left first carpometacarpal and bilateral t riscaphe joints. Additional minimal to mild osteoarthritis at the bilateral interphalangeal joints. N o evident erosions to suggest inflammatory arthritis. IMPRESSION: 1. Polyarticular osteoarthritis most prominent at the radial aspect of the carpi, moderate at the lef t and moderate to severe at the right. Reviewed, dictated and finalized at location A. IMPRESSION: 1. Polyarticular osteoarthritis most prominent at the radial aspect of the carp i, moderate at the left and moderate to severe at the right.
--- NOTE | ~2023-02-28 | XR_ITS ---
EXAM: XR hand RT 2V DATE: 02/28/2023 13:10 HISTORY: polyarthralgia positive mayelin . COMPARISON: None available. FINDINGS: Decreased mineralization. No fracture or dislocation. No lytic or blastic lesion. Scattere d arthritic changes typical of osteoarthritis, most pronounced at the trapeziometacarpal joint. No er osion or periosteal change. Soft tissues within normal limits. IMPRESSION: Polyarticular osteoarthritis. Reviewed, dictated and finalized at location K.
== END 2023-02-28 12:37 | disposition home or self-care (01) ==
LOC: ANHLAB 12:44
PROVIDERS: PCP Family Medicine; Visit Provider Physician Assistant
DX: R76.8 Other specified abnormal immunological findings in serum (principal); M25.50 Pain in unspecified joint; M19.042 Primary osteoarthritis, left hand; M19.041 Primary osteoarthritis, right hand; M17.12 Unilateral primary osteoarthritis, left knee
CPT/HCPCS: 73120; 73562

== ENCOUNTER 2025-09-23 09:23 | Emergency (ER) | payer MEDICARE, SELFPAY ==
--- NOTE | ~2025-09-23 | CT_ITS ---
EXAMINATION: CT pelvis wo con COMPARISON: None HISTORY: fall, left hip pain TECHNIQUE: Axial images were obtained without IV contrast. Sagittal, coronal reconstruction images were obtained from the axial views. CT scan performed using dose optimization techniques including the following automated exposure control; adjustment of mA and/or kV; use of iterative reconstruction technique. Automatic exposure control was used to reduce radiation dose. Permanent radiation dose record is archived to PACS. FINDINGS: Postsurgical changes within the visualized lumbar spine. Moderate degenerative changes of the sacroiliac joints bilaterally. Minimal degenerative changes of the acetabular femoral joints and symphysis pubis. No fracture or dislocation is identified. There is no avascular necrosis. No lytic lesions. Scattered punctate probable bone islands. Soft tissues demonstrate no abnormality. No intramuscular hemorrhage is identified. The visualized intrapelvic soft tissues appear unremarkable. IMPRESSION: No fracture is identified. If pain persists MRI suggested to assess for bone edema Reviewed, dictated and finalized at location P. CONTROL CLERK
--- NOTE | 2025-09-23 09:37 | ED.FALL ---
HPI - Fall General Chief Complaint: Fall Stated Complaint: fall-left hip pain Time Seen by Provider: 09/23/25 09:28 History of Present Illness HPI Narrative: 70-year-old female history of HTN, hypothyroidism, chronic low back pain the home tramadol presents to the ER complaining of left hip pain following mechanical fall occurred this morning. Patient states that she tripped over a suitcase, leaning on left hip. Patient was able to ambulate with the assistance of a walker. Denies other injuries. Related Data Allergies Allergy/AdvReac Type Severity Reaction Status Date / Time morphine Allergy Severe Itching Verified 02/13/25 14:06 tetracycline Allergy Intermediate HIVES Verified 02/13/25 14:06 hydrocodone Allergy Itching Verified 02/13/25 14:06 oxycodone Allergy Irritable Verified 02/13/25 14:06 Review of Systems Review of Systems: All systems reviewed & are unremarkable except as noted in HPI and below PMFSH Past Medical History Medical History TIA (transient ischemic attack) Ulcer Hypothyroid Surgical History Surgical History History of total right knee replacement H/O section History of back surgery H/O: hysterectomy Hx of gastric bypass Hx of appendectomy Hx of cholecystectomy Family History Family History Mother Patient's mother is Family history of thyroid disease Diabetes mellitus Cerebrovascular accident Father Patient's father is Diabetes mellitus Cerebrovascular accident Grandparent Family history of thyroid disease Diabetes mellitus Family history of liver disease Cerebrovascular accident Sibling Family history of thyroid disease Other Family history of arthritis Family history of rheumatoid arthritis Social History Social History Social History: 02/13/25 very confident with medical forms Smoking packs per day: 0.5 Smoking cigarettes per day: 10.0 Smoking status: Current every day smoker Second hand tobacco smoke exposure: Yes Smoking end date: 10/10/11 Alcohol intake: current Drinks per week: 1 Substance use: never Substance use type: does not use Lack of Transportation: No Lack of Food: Never True Current Housing: I Have Housing Concerned About Future Housing: No Difficulty Paying Gas/Electric Bills: No Difficulty Paying for Meds: No Currently Unemployed: No Education: High School Diploma/GED Difficulty w/ Childcare or Family Care: No Living arrangements: with family Occupation/Education: retired Gender identity (if verbalized by the patient): Female Spiritual care concerns: No Agree to blood products: Yes Exam Const: General: healthy appearing, no acute distress and alert Nutritional Appearance: well nourished Orientation/consciousness: patient oriented x3 Limitations: no limitations HENMT: Head: normal to inspection Resp: Effort & Inspection: normal respiratory effort Auscultation: clear to auscultation bilaterally Cardio: Rate: regular rate Rhythm: regular rhythm Skin: General skin exam: normal color Neuro: General: patient oriented x3 and moves all extremities Speech: normal speech Extrem: Other: Left hip: TTP to posterior half of products/mid pelvis, TTP to left inguinal area. Pain with hip abduction. No obvious shortening or internal rotation. Neurovascular is intact distally. Course Vital Signs Vital signs: Vital Signs Temperature 36.5 C 09/23/25 10:00 Pulse Rate 87 09/23/25 10:00 Respiratory Rate 16 09/23/25 10:00 Blood Pressure 166/90 H 09/23/25 10:00 Pulse Oximetry 100 09/23/25 10:00 Oxygen Delivery Room Air 09/23/25 10:00 Temperature 36.5 C 09/23/25 10:00 Pulse Rate 87 09/23/25 10:00 Respiratory Rate 16 09/23/25 10:00 Blood Pressure 166/90 H 09/23/25 10:00 Pulse Oximetry 100 09/23/25 10:00 Oxygen Delivery Room Air 09/23/25 10:00 MDM MDM Narrative Medical decision making narrative: In summary: 70-year-old female were presents to the ER complaining of left hip pain following a fall. CT imaging of clements demonstrate any acute bony abnormality. Offered patient admission for pain control, and higher risk for falls, she refused. Patient reports she will obtain a walker. Patient states she takes tramadol, NSAIDs, muscle relaxers routinely at home, does not tolerate hydrocodone or oxycodone. Plan is to discharge patient home in stable condition. Differential Diagnosis Differential Diagnosis: Hip fracture, contusion, strain, subluxation, dislocation Imaging Data Radiologist's impression: ITS Impressions Pelvis CT 09/23/25 10:09 IMPRESSION: No fracture is identified. If pain persists MRI suggested to assess for bone edema Discharge Plan Discharge Clinical Impression: Injury of hip, left Patient Disposition: Home Condition: Stable Instructions: Antibiotic Form, Hip Contusion (ED) Patient Language: [place] Prescriptions: New lidocaine 5 % adhesive patch,medicated 1 patch topical DAILY Qty: 30 0RF Rx Instructions: leave on most painful area for up to 12 hrs No Action Wegovy 0.25 mg/0.5 mL pen injector 0.25 mg subcut WEEKLY Qty: 2 0RF Rx Instructions: administer weeks 1 through 4 of therapy aspirin 325 mg tablet 325 mg PO DAILY Qty: 30 0RF hydrochlorothiazide 12.5 mg tablet 25 mg PO DAILY Qty: 90 3RF tramadol 50 mg tablet 100 mg PO Q6H PRN (Reason: pain) Qty: 60 1RF hydroxyzine HCl 25 mg tablet 25 mg PO TID PRN (Reason: seasonal allergies) Qty: 90 0RF cyclobenzaprine 10 mg tablet See Rx Instructions .ROUTE .COMPLEX Qty: 90 0RF Dose Instruction: TAKE 1 TABLET BY MOUTH THREE TIMES DAILY Rx Instructions: TAKE 1 TABLET BY MOUTH THREE TIMES DAILY trazodone 50 mg tablet 50 mg PO QHS Qty: 90 0RF [place] Thyroid 60 mg tablet See Rx Instructions .ROUTE .COMPLEX Qty: 90 0RF Dose Instruction: TAKE 1 TABLET DAILY Rx Instructions: TAKE 1 TABLET DAILY Follow-up/Referrals: Yoanna Magallon APRN [Primary Care Provider, [facility]] Time of Disposition: 10:55
[2025-09-23 10:00] VITALS: BP 166/90; PULSE 87; RESP 16; TEMP 36.5; O2SAT 100
[2025-09-23] MEDS: fentaNYL CITRATE INJ (*CRX) 100 MCG/2 ML VIAL 50 MCG IV PUSH (10:08)
[2025-09-23 12:54] VITALS: BP 122/71; PULSE 88; RESP 18; O2SAT 100
== END 2025-09-23 11:17 | disposition home or self-care (01) ==
PROVIDERS: Emergency Provider Nurse Practitioner Family; PCP Nurse Practitioner Family
DX: S79.912A Unspecified injury of left hip, initial encounter (principal); I10 Essential (primary) hypertension; E03.9 Hypothyroidism, unspecified; W01.0XXA Fall on same level from slipping, tripping and stumbling without subsequent striking against object, initial encounter
CPT/HCPCS: 72192; 96374; 99284; J3010